=== PATIENT | female | born 1960 | race Two or more races ===

== ENCOUNTER → 2023-08-28 | Outpatient (CLI) | payer BC | END | disposition home or self-care (01) | LOC: XYW 15:49 | PROVIDERS: ATTEND Internal Medicine | DX: I35.8 Other nonrheumatic aortic valve disorders (principal); R06.02 Shortness of breath; R09.89 Other specified symptoms and signs involving the circulatory and respiratory systems | CPT/HCPCS: 93306 ==

== ENCOUNTER → 2023-08-29 | Outpatient (CLI) | payer BC | END | disposition home or self-care (01) | LOC: XYW 08:48 | PROVIDERS: ATTEND Internal Medicine | DX: I65.23 Occlusion and stenosis of bilateral carotid arteries (principal); R06.02 Shortness of breath; R09.89 Other specified symptoms and signs involving the circulatory and respiratory systems | CPT/HCPCS: 93886 ==

== ENCOUNTER → 2023-11-02 | Outpatient (CLI) | payer BC | END | disposition home or self-care (01) | LOC: LAB 14:58 | PROVIDERS: ATTEND Internal Medicine | DX: Z12.11 Encounter for screening for malignant neoplasm of colon (principal); Z00.00 Encounter for general adult medical examination without abnormal findings; I10 Essential (primary) hypertension; E78.5 Hyperlipidemia, unspecified; R06.02 Shortness of breath | CPT/HCPCS: 82270 ==

== ENCOUNTER → 2025-01-06 | Outpatient (CLI) | payer BC ==
[2025-01-06 07:45] LABS: Basophils # (auto) 0.1 10 ^3/uL (0-0.2); Basophils % (auto) 1.3 % (0.0-2.0); Eosinophils # (auto) 0.1 10 ^3/uL (0-0.8); Eosinophils % (auto) 1.7 % (0.0-7.0); Hematocrit 33.4 % (36.0-46.0); Hemoglobin 11.5 g/dL (12.2-16.2); Lymphocytes # (auto) 2.3 10 ^3/uL (0.4-5.4); Lymphocytes % (auto) 39.8 % (10.0-50.0); Mean Corpuscular Hemoglobin 27.9 pg (28.0-32.0); Mean Corpuscular Hgb Conc. 34.4 g/dL (32.0-36.0); Mean Corpuscular Volume 81.1 fL (80.0-100.0); Monocytes # (auto) 0.5 10 ^3/uL (0-1.3); Monocytes % (auto) 8.3 % (0.0-12.0); Neutrophils # (auto) 2.8 10 ^3/uL (1.6-8.6); Neutrophils % (auto) 48.9 % (37.0-80.0); Nucleated Red Blood Cells % 0.1 %; Platelet Count (auto) 282 10^3/uL (140-450); Red Blood Cells 4.12 10^6/uL (4.0-5.20); Red Cell Distribution Width 15.5 % (11.8-14.3); White Blood Cell 5.8 10^3/uL (4.4-10.8)
[2025-01-06 08:24] LABS: Erythrocyte Sedimentation Rate 38 mm/hr (0-20)
== END | disposition home or self-care (01) ==
LOC: LAB 07:21
PROVIDERS: ATTEND Internal Medicine
DX: D64.9 Anemia, unspecified (principal); R70.0 Elevated erythrocyte sedimentation rate
CPT/HCPCS: 36415; 85025; 85652; 86141

== ENCOUNTER → 2025-04-07 | Outpatient (CLI) | payer BC ==
[2025-04-07 14:05] LABS: Alanine Aminotransferase 19 U/L (7-40); Albumin 5.0 g/dL (3.2-4.8); Alkaline Phosphatase 32 U/L (46-116); Anion Gap 9 (5-15); BUN/Creatinine Ratio 20.6 (10.0-20.0); Bilirubin, Total 0.4 mg/dL (0.2-1.0); Blood Urea Nitrogen 22 mg/dL (9-23); Calcium 10.2 mg/dL (8.7-10.4); Carbon Dioxide 24 mmol/L (20-31); Chloride 106 mmol/L (98-107); Glucose 93 mg/dL (74-106); Potassium 4.3 mmol/L (3.5-5.1); Sodium 139 mmol/L (136-145); Total Protein 7.9 g/dL (5.7-8.2)
[2025-04-08 12:07] LABS: Anti-Nuclear Antibody Direct Negative (Negative); Anti-dsDNA Antibody <1 IU/mL (0-9); Antiscleroderma-70 Antibody <0.2 AI (0.0-0.9); Sjogren's Anti-SS-A Antibody <0.2 AI (0.0-0.9); Sjogren's Anti-SS-B Antibody <0.2 AI (0.0-0.9)
== END | disposition home or self-care (01) ==
LOC: LAB 12:46
PROVIDERS: ATTEND Internal Medicine
DX: I10 Essential (primary) hypertension (principal); E11.9 Type 2 diabetes mellitus without complications; E78.5 Hyperlipidemia, unspecified; D64.9 Anemia, unspecified; J30.9 Allergic rhinitis, unspecified
CPT/HCPCS: 36415; 80053; 82607; 82746; 83036; 84443; 86160; 86225; 86235; 86376; 86431; 86880

== ENCOUNTER 2025-05-11 07:59 | Outpatient (CLI) | payer BC ==
[2025-05-11 08:25] LABS: Hematocrit 33.3 % (36.0-46.0); Hemoglobin 11.3 g/dL (12.2-16.2); Mean Corpuscular Hemoglobin 27.3 pg (28.0-32.0); Mean Corpuscular Volume 80.2 fL (80.0-100.0); Nucleated Red Blood Cells % 0.0 %
[2025-05-11 08:40] LABS: Urine Protein, UAD Negative (Negative)
[2025-05-11 08:51] LABS: Alanine Aminotransferase 22 U/L (7-40); Anion Gap 10 (5-15); BUN/Creatinine Ratio 14.9 (10.0-20.0); Blood Urea Nitrogen 15 mg/dL (9-23); Calcium 9.4 mg/dL (8.7-10.4); Carbon Dioxide 25 mmol/L (20-31); Chloride 107 mmol/L (98-107); Cholesterol 160 mg/dL (< 200); Glucose 91 mg/dL (74-106); Potassium 4.6 mmol/L (3.5-5.1); Sodium 142 mmol/L (136-145); Total Protein 7.8 g/dL (5.7-8.2)
[2025-05-11 08:52] LABS: Bilirubin, Total 0.4 mg/dL (0.2-1.0); HDL Cholesterol 45 mg/dL (40-59)
[2025-05-11 08:54] LABS: Albumin 5.0 g/dL (3.2-4.8); Alkaline Phosphatase 32 U/L (46-116); Triglycerides 208 mg/dL (< 150)
== END 2025-05-11 17:00 | disposition home or self-care (01) ==
LOC: LAB 07:59
PROVIDERS: ATTEND Internal Medicine
DX: I12.9 Hypertensive chronic kidney disease with stage 1 through stage 4 chronic kidney disease, or unspecified chronic kidney disease (principal); N18.31 Chronic kidney disease, stage 3a; E78.5 Hyperlipidemia, unspecified; D64.9 Anemia, unspecified; E70.0 Classical phenylketonuria
CPT/HCPCS: 36415; 80053; 80061; 81001; 85025; 85652; 86141; 86256

== ENCOUNTER → 2025-05-22 | Outpatient (CLI) | payer BC | END | disposition home or self-care (01) | LOC: LAB 10:39 | PROVIDERS: ATTEND Internal Medicine | DX: B96.81 Helicobacter pylori [H. pylori] as the cause of diseases classified elsewhere (principal) | CPT/HCPCS: 83013 ==

== ENCOUNTER 2025-07-01 07:54 | Outpatient (CLI) | payer BC ==
[2025-07-01 08:48] LABS: Protein, Urine 14.1 mg/dL (1-14)
[2025-07-01 10:25] LABS: Iron 59.0 ug/dL (50-170)
[2025-07-01 10:27] LABS: Total Iron Binding Capacity 328.0 ug/dL (250-425)
[2025-07-01 10:29] LABS: Ferritin 114.7 ng/mL (10-291)
[2025-07-02 09:07] LABS: Anti-Nuclear Antibody Direct Negative (Negative); Anti-dsDNA Antibody <1 IU/mL (0-9); Antiscleroderma-70 Antibody <0.2 AI (0.0-0.9); Sjogren's Anti-SS-A Antibody <0.2 AI (0.0-0.9); Sjogren's Anti-SS-B Antibody <0.2 AI (0.0-0.9)
[2025-07-03 04:06] LABS: Immunoglobulin A 656 mg/dL (87-352)
== END 2025-07-01 17:00 | disposition home or self-care (01) ==
LOC: LAB 07:54
PROVIDERS: ATTEND Internal Medicine
DX: N18.2 Chronic kidney disease, stage 2 (mild) (principal); D63.1 Anemia in chronic kidney disease; E78.5 Hyperlipidemia, unspecified; I51.7 Cardiomegaly; R94.4 Abnormal results of kidney function studies
CPT/HCPCS: 36415; 82570; 82607; 82728; 82746; 82784; 83516; 83540; 83550; 83615; 84155; 84156; 84165; 85652; 86160; 86225; 86235; 86255; 86376; 86431; 86880

== ENCOUNTER → 2025-07-24 | Outpatient (CLI) | payer BC ==
[2025-07-24 11:23] LABS: Potassium 4.6 mmol/L (3.5-5.1); Sodium 142 mmol/L (136-145)
[2025-07-24 11:24] LABS: Anion Gap 9 (5-15); Calcium 9.4 mg/dL (8.7-10.4); Carbon Dioxide 25 mmol/L (20-31)
[2025-07-24 11:26] LABS: Chloride 108 mmol/L (98-107)
[2025-07-24 11:29] LABS: BUN/Creatinine Ratio 17.3 (10.0-20.0); Blood Urea Nitrogen 17 mg/dL (9-23); Glucose 87 mg/dL (74-106)
== END | disposition home or self-care (01) ==
LOC: LAB 10:55
PROVIDERS: ATTEND Internal Medicine
DX: E78.5 Hyperlipidemia, unspecified (principal)
CPT/HCPCS: 36415; 80048